=== PATIENT | female | born 1945 | race Caucasian/White ===

== ENCOUNTER 2017-07-25 11:19 | Outpatient (CLI) | payer OTHER ==
[~2017-07-25 11:19] MED LIST: CIPROFLOXACIN500 MG; DOLOGEN CAPLET1 TAB; RELAGESIC TABL1 EACH PO; [UNRECOGNIZED DRUG - SUPPLY] TP
== END 2017-07-25 11:20 | disposition home or self-care (01) ==
LOC: NUCLEAR 11:19
DX: M81.0 Age-related osteoporosis without current pathological fracture (principal)

== ENCOUNTER 2017-08-12 08:12 | Outpatient (CLI) | payer OTHER | END 2017-08-12 08:35 | disposition home or self-care (01) | LOC: NUCLEAR 08:12 | DX: I11.9 Hypertensive heart disease without heart failure (principal); I25.10 Atherosclerotic heart disease of native coronary artery without angina pectoris; E11.9 Type 2 diabetes mellitus without complications | CPT/HCPCS: 78452; 93017; A9500; J0153 ==

== ENCOUNTER 2018-06-02 12:51 | Emergency (ER) | payer OTHER ==
[~2018-06-02] VITALS: Ht 162.6 cm; Wt 95.3 kg
[2018-06-02] MEDS ORDERED: ELIQUIS2.5 MG PO (13:11)
[2018-06-02] MEDS ORDERED: METFORMIN HCL500 MG PO (13:11)
[2018-06-02] MEDS ORDERED: METOPROLOL SUC100 MG PO (13:12)
[2018-06-02] MEDS ORDERED: CLORAZEPATE D3.75 MG PO (13:13)
== END 2018-06-02 17:36 | disposition home or self-care (01) ==
LOC: ER 12:51
DX: G89.11 Acute pain due to trauma (principal); M54.5 Low back pain; M54.2 Cervicalgia; R31.29 Other microscopic hematuria

== ENCOUNTER 2018-10-04 16:39 | Emergency (ER) | payer OTHER ==
[~2018-10-04] VITALS: Ht 162.6 cm; Wt 95.3 kg
[~2018-10-04 16:39] MED LIST changes: +CLORAZEPATE D3.75 MG PO; +ELIQUIS2.5 MG PO; +METFORMIN HCL500 MG PO; +METOPROLOL SUC100 MG PO
== END 2018-10-04 20:23 | disposition home or self-care (01) ==
LOC: ER 16:39
DX: K20.8 Other esophagitis (principal); R10.13 Epigastric pain

== ENCOUNTER 2019-12-22 14:47 | Emergency (ER) | payer OTHER ==
[~2019-12-22] VITALS: Ht 152.4 cm; Wt 108.9 kg
[2019-12-22] MEDS ORDERED: LEVOTHYROXINE25 MCG (15:07)
== END 2019-12-22 17:08 | disposition home or self-care (01) ==
LOC: ER 14:47
DX: M94.0 Chondrocostal junction syndrome [Tietze] (principal); R07.89 Other chest pain; R00.2 Palpitations

== ENCOUNTER 2020-01-24 16:35 | Emergency (ER) | payer OTHER ==
[~2020-01-24] VITALS: Ht 162.6 cm; Wt 99.8 kg
[~2020-01-24 16:35] MED LIST changes: +LEVOTHYROXINE25 MCG
[2020-01-24] MEDS ORDERED: LEVSIN/SL0.125 MG SL (19:44)
[2020-01-24] MEDS ORDERED: PEPCID AC20 MG PO (19:44)
== END 2020-01-24 20:14 | disposition home or self-care (01) ==
LOC: ER 16:35
DX: R10.13 Epigastric pain (principal); K80.20 Calculus of gallbladder without cholecystitis without obstruction

== ENCOUNTER 2020-05-18 10:51 | Outpatient (CLI) | payer OTHER ==
[~2020-05-18 10:51] MED LIST changes: +LEVSIN/SL0.125 MG SL; +PEPCID AC20 MG PO
== END 2020-05-18 11:07 ==
LOC: MAMO-SONO 10:51
PROVIDERS: ATTEND Specialist
DX: N60.11 Diffuse cystic mastopathy of right breast (principal); N60.12 Diffuse cystic mastopathy of left breast; Z12.31 Encounter for screening mammogram for malignant neoplasm of breast

== ENCOUNTER 2021-04-09 13:19 | Outpatient (CLI) | payer OTHER | END 2021-04-09 13:28 | disposition home or self-care (01) | LOC: NUCLEAR 13:19 | PROVIDERS: ATTEND Internal Medicine Cardiovascular Disease | DX: R00.2 Palpitations (principal) ==

== ENCOUNTER 2021-05-27 18:04 | Emergency (ER) | payer OTHER ==
[~2021-05-27] VITALS: Ht 160 cm; Wt 93.9 kg
== END 2021-05-27 21:35 | disposition home or self-care (01) ==
LOC: ER 18:04
DX: R53.1 Weakness (principal); Z11.52 Encounter for screening for COVID-19

== ENCOUNTER 2023-04-15 08:58 | Outpatient (CLI) | payer OTHER | END 2023-04-15 08:59 | disposition home or self-care (01) | LOC: LAB 08:58 → EKG 08:58 | PROVIDERS: ATTEND Orthopaedic Surgery Hand Surgery | DX: I10 Essential (primary) hypertension (principal); D68.9 Coagulation defect, unspecified ==

== ENCOUNTER 2023-09-16 09:23 | Outpatient (CLI) | payer OTHER | END 2023-09-16 09:26 | disposition home or self-care (01) | LOC: NUCLEAR 09:23 | PROVIDERS: ATTEND Specialist | DX: M15.8 Other polyosteoarthritis (principal) | CPT/HCPCS: 78306; A9503 ==